=== PATIENT | female | born 1990 | race Caucasian/White ===

== ENCOUNTER 2019-08-10 12:57 | Emergency (ER) | payer MEDICAID ==
[~2019-08-10] VITALS: Ht 172.7 cm; Wt 129.8 kg
[2019-08-10 13:07] VITALS: BP 112/70
--- NOTE | 2019-08-10 13:20 | NUR ---
PT HERE TO SEE IF SHE IS . PT STATES SHE HAS THE NEXPLANON AND IT EXPIRES SOON. PT ALSO STATES NAUSEA AND VOMITTING X 4 DAYS, STATES HOME TEST WAS NEGATIVE.
--- NOTE | 2019-08-10 13:52 | NUR ---
LAB AT BEDSIDE.
--- NOTE | 2019-08-10 14:37 | NUR ---
ALL RESULTS BACK AT THIS TIME, CHART UP FOR RECHECK.
--- NOTE | 2019-08-10 15:05 | NUR ---
Patient/Caregiver given discharge instructions and they have confirmed that they understand the instructions. Patient ambulatory with steady gait.
== END 2019-08-10 15:27 | disposition home or self-care (01) ==
LOC: ED 15:25
DX: K52.9 Noninfective gastroenteritis and colitis, unspecified (principal); R11.2 Nausea with vomiting, unspecified
CPT/HCPCS: 36415; 84703; 99283

== ENCOUNTER 2020-03-05 23:09 | Inpatient (IN) | payer SELFPAY ==
[~2020-03-05] VITALS: Ht 172.7 cm; Wt 141.4 kg
[2020-03-05] MEDS ORDERED: SODIUM CHLORIDE 0.9% 1,000 ML IV ONE (23:32)
[2020-03-05] MEDS ORDERED: ONDANSETRON 2MG/ML, 2ML ONE (23:47)
[2020-03-05 23:54] LABS: BASOPHILS # (AUTO) 0.02 x10^3/uL (0-0.1); BASOPHILS % (AUTO) 0 % (0-1); EOSINOPHILS # (AUTO) 0.06 x10^3/uL (0-0.4); EOSINOPHILS % (AUTO) 1 % (1-7); LYMPHOCYTES # (AUTO) 1.57 x10^3/uL (1-3.4); LYMPHOCYTES % (AUTO) 16 % (22-44); MD NO; MEAN CORPUSCULAR HEMOGLOBIN 29.9 pg (27.0-34.8); MEAN CORPUSCULAR HGB CONC 32.7 g/dL (32.4-35.8); MEAN CORPUSCULAR VOLUME 91.4 fL (80-100); MEAN PLATELET VOLUME 8.1 fL (7.4-10.4); MONOCYTES # (AUTO) 0.29 x10^3/uL (0.2-0.8); MONOCYTES % (AUTO) 3 % (2-9); NEUTROPHILS # (AUTO) 8.19 x10^3/uL (1.8-6.8); NEUTROPHILS % (AUTO) 81 % (42-75); PLATELET COUNT 308 x10^3/uL (130-400); RED BLOOD COUNT 4.55 x10^6/uL (3.82-5.3); RED CELL DISTRIBUTION WIDTH 13.1 % (9.6-15.2)
[2020-03-06] MEDS ORDERED: SODIUM CHLORIDE FLUSH 10ML SYR IVF ONE
[2020-03-06] MEDS ORDERED: ONDANSETRON 2MG/ML, 2ML IVPush ONE
[2020-03-06] MEDS ORDERED: SODIUM CHLORIDE 0.9% 1,000ML IVBOLUS ONE
[2020-03-06] MEDS ORDERED: ACETYLCYSTEINE 20%, 30ML PO ONE
--- NOTE | 2020-03-06 | NUR ---
PT BIB [facility] FOR UNITENTIONAL TYLENOL OD. PT TOOK 8 500 MG OF TYLENOL AT 2030 AND CONTINUED TO TAKE IT EVERY 30 MIN TO STOP TOOT PAIN. PT TOOK APPROX 30 PILLS OVER A 3 HOUR PERIOD. PT IS TACHYCARDIC AND FEELS SHAKY. FLUIDS RUNNING AND PT MEDICATED WITH ZOFRAN. MUCAMYST REQUESTED FROM PHARMACY. CALL LIGHT IN [place]
[2020-03-06 00:07] LABS: ALANINE AMINOTRANSFERASE 23 U/L (12-78); ALBUMIN 3.4 g/dL (3.4-5.0); ANION GAP 7 mmol/L (5-15); CALCIUM 8.6 mg/dL (8.5-10.1); CHLORIDE 113 mmol/L (98-107); CREATININE 0.79 mg/dL (0.55-1.02); SALICYLATE LEVEL 2.1 mg/dL (2.8-20.0)
[2020-03-06 00:12] LABS: ALKALINE PHOSPHATASE 52 U/L (45-117); BILIRUBIN,TOTAL 0.2 mg/dL (0.2-1.0)
[2020-03-06] MEDS ORDERED: OMNIPAQUE 350 MG/ML, 75ML BOTTLE ONE (00:46)
[2020-03-06] MEDS ORDERED: DOCUSATE 100 MG CAPSULE PO PRN (02:00)
[2020-03-06] MEDS ORDERED: hydrALAzine 20 MG/ML, 1ML IVPush PRN (02:00)
[2020-03-06] MEDS ORDERED: ONDANSETRON 2MG/ML, 2ML IVPush PRN (02:00)
[2020-03-06] MEDS ORDERED: SODIUM CHLORIDE FLUSH 10ML SYR IVF PRN (02:30)
[2020-03-06 03:13] VITALS: BP 124/72
[2020-03-06 03:14] LABS: MICROSCOPIC NOT IND
[2020-03-06] MEDS: SODIUM CHLORIDE 0.9% 1,000 ML IV SCH ×2 (03:16→08:02)
[2020-03-06 03:27] LABS: AMPHETAMINE SCREEN, URINE Negative (Negative); BARBITURATE SCREEN, URINE Negative (Negative); BENZODIAZEPINE SCREEN, URINE Negative (Negative); CANNABINOID SCREEN, URINE Positive (Negative); COCAINE SCREEN, URINE Negative (Negative); METHADONE SCREEN, URINE Negative (Negative); OPIATE SCREEN, URINE Negative (Negative)
[2020-03-06] MEDS ORDERED: MELA5TAB14 PO (03:37)
[2020-03-06] MEDS: ACETYLCYSTEINE 20%, 30ML PO SCH ×5 (05:04→21:39)
[2020-03-06 06:31] LABS: ALANINE AMINOTRANSFERASE 23 U/L (12-78); ALBUMIN 3.1 g/dL (3.4-5.0); ANION GAP 8 mmol/L (5-15); CALCIUM 8.4 mg/dL (8.5-10.1); CHLORIDE 113 mmol/L (98-107); CREATININE 0.61 mg/dL (0.55-1.02)
[2020-03-06 06:33] LABS: ALKALINE PHOSPHATASE 47 U/L (45-117); BILIRUBIN,TOTAL 0.4 mg/dL (0.2-1.0); TOTAL PROTEIN 6.6 g/dL (6.4-8.2)
[2020-03-06 07:20] VITALS: BP 117/76
[2020-03-06] MEDS ORDERED: ENOXAPARIN 40 MG/0.4 ML SQ SCH (09:00)
[2020-03-06] MEDS: KETOROLAC 30 MG/1 ML IM SCH ×2 (10:09→16:11)
[2020-03-06 10:35] LABS: ALBUMIN 3.1 g/dL (3.4-5.0); ANION GAP 11 mmol/L (5-15); CALCIUM 8.3 mg/dL (8.5-10.1); CHLORIDE 113 mmol/L (98-107)
[2020-03-06 10:38] LABS: ALANINE AMINOTRANSFERASE 28 U/L (12-78); ALKALINE PHOSPHATASE 43 U/L (45-117); BILIRUBIN,TOTAL 0.4 mg/dL (0.2-1.0); CREATININE 0.53 mg/dL (0.55-1.02); TOTAL PROTEIN 6.5 g/dL (6.4-8.2)
[2020-03-06 13:58] VITALS: BP 116/84
[2020-03-06 14:11] LABS: CHLORIDE 112 mmol/L (98-107)
[2020-03-06 14:12] LABS: ALANINE AMINOTRANSFERASE 23 U/L (12-78); ANION GAP 8 mmol/L (5-15); CALCIUM 8.5 mg/dL (8.5-10.1); CREATININE 0.61 mg/dL (0.55-1.02)
[2020-03-06 14:14] LABS: ALKALINE PHOSPHATASE 46 U/L (45-117); BILIRUBIN,TOTAL 0.6 mg/dL (0.2-1.0); TOTAL PROTEIN 6.5 g/dL (6.4-8.2)
[2020-03-06 14:15] LABS: INTERNATIONAL NORMALIZED RATIO 1.08 (0.93-1.1); PROTHROMBIN TIME 11.1 Seconds (9.6-11.5)
[2020-03-06 18:10] LABS: CHLORIDE 112 mmol/L (98-107)
[2020-03-06 18:18] LABS: ALANINE AMINOTRANSFERASE 26 U/L (12-78); ALKALINE PHOSPHATASE 42 U/L (45-117); ANION GAP 11 mmol/L (5-15); BILIRUBIN,TOTAL 0.5 mg/dL (0.2-1.0); CALCIUM 8.2 mg/dL (8.5-10.1); CREATININE 0.57 mg/dL (0.55-1.02); TOTAL PROTEIN 6.5 g/dL (6.4-8.2)
[2020-03-06 19:38] VITALS: BP 101/68
[2020-03-06] MEDS: KETOROLAC 30 MG/1 ML IV SCH (21:40)
[2020-03-06] MEDS: POTASSIUM CHLORIDE 20 MEQ TAB.ER.PRT PO SCH (21:40)
[2020-03-07 01:32] VITALS: BP 116/75
[2020-03-07] MEDS: ACETYLCYSTEINE 20%, 30ML PO SCH ×5 (01:37→22:05)
[2020-03-07] MEDS ORDERED: SODIUM CHLORIDE 0.9% 1,000 ML IV SCH (01:39)
[2020-03-07] MEDS: KETOROLAC 30 MG/1 ML IV SCH ×4 (04:49→22:05)
[2020-03-07 05:19] LABS: BASOPHILS # (AUTO) 0.03 x10^3/uL (0-0.1); BASOPHILS % (AUTO) 0 % (0-1); EOSINOPHILS # (AUTO) 0.15 x10^3/uL (0-0.4); EOSINOPHILS % (AUTO) 2 % (1-7); LYMPHOCYTES # (AUTO) 3.64 x10^3/uL (1-3.4); LYMPHOCYTES % (AUTO) 49 % (22-44); MD NO; MEAN CORPUSCULAR HGB CONC 32.9 g/dL (32.4-35.8); MEAN CORPUSCULAR VOLUME 91.1 fL (80-100); MEAN PLATELET VOLUME 8.3 fL (7.4-10.4); MONOCYTES # (AUTO) 0.36 x10^3/uL (0.2-0.8); MONOCYTES % (AUTO) 5 % (2-9); NEUTROPHILS # (AUTO) 3.26 x10^3/uL (1.8-6.8); NEUTROPHILS % (AUTO) 44 % (42-75); PLATELET COUNT 257 x10^3/uL (130-400); RED BLOOD COUNT 4.17 x10^6/uL (3.82-5.3); RED CELL DISTRIBUTION WIDTH 13.3 % (9.6-15.2)
[2020-03-07 05:39] LABS: ANION GAP 10 mmol/L (5-15); CALCIUM 8.1 mg/dL (8.5-10.1); CHLORIDE 116 mmol/L (98-107); CREATININE 0.54 mg/dL (0.55-1.02)
[2020-03-07 07:53] VITALS: BP 105/70
[2020-03-07] MEDS: POTASSIUM CHLORIDE 20 MEQ TAB.ER.PRT PO SCH (08:50)
[2020-03-07] MEDS: ACETYLCYSTEINE 20%, 4ML PO SCH ×2 (12:59→13:07)
[2020-03-07 14:46] VITALS: BP 108/75
[2020-03-07 19:14] VITALS: BP 127/69
[2020-03-08] MEDS: ACETYLCYSTEINE 20%, 30ML PO SCH ×4 (01:20→13:00)
[2020-03-08 01:28] VITALS: BP 141/89
[2020-03-08] MEDS: KETOROLAC 30 MG/1 ML IV SCH ×2 (05:40→09:43)
[2020-03-08 07:53] VITALS: BP 129/82
== END 2020-03-08 13:37 | disposition home or self-care (01) | DRG 918 ==
LOC: ED 03-06 02:19 → EDIP 03-06 02:37 → 3N 03-06 02:41 → DCLOUNGE 03-08 13:25
PROVIDERS: ADMIT Student in an Organized Health Care Education/Training Program; ATTEND Hospitalist
DX: T39.1X1A Poisoning by 4-Aminophenol derivatives, accidental (unintentional), initial encounter (principal); F17.200 Nicotine dependence, unspecified, uncomplicated; K02.9 Dental caries, unspecified; R00.0 Tachycardia, unspecified; I10 Essential (primary) hypertension; Y92.89 Other specified places as the place of occurrence of the external cause; Z72.89 Other problems related to lifestyle; Z71.6 Tobacco abuse counseling
CPT/HCPCS: 36415; J7608; 70487; 80048; 80053; 80307; 81003; 83735; 84703; 85025; 85610; 93005; G0378; J1650; J1885; J2405; Q9967; J7030